=== PATIENT | male | born 1985 | race Caucasian/White ===

== ENCOUNTER 2016-11-21 23:23 | Emergency (ER) | payer SELFPAY ==
[~2016-11-21] VITALS: Ht 175.3 cm; Wt 63.6 kg
[2016-11-22] MEDS ORDERED: FLEXERIL 1010 MG/TAB PO (00:52)
[2016-11-22] MEDS ORDERED: NORCO 325 MG-51 TAB PO (00:52)
[2016-11-22 02:49] VITALS: BP 132/84; PULSE 80; TEMP 98.6
== END 2016-11-22 02:50 | disposition home or self-care (01) ==
LOC: COL.ER 23:23
DX: M54.5 Low back pain (principal); M54.16 Radiculopathy, lumbar region; M62.830 Muscle spasm of back
CPT/HCPCS: J1170

== ENCOUNTER 2016-12-01 15:51 | Emergency (ER) | payer SELFPAY ==
[~2016-12-01] VITALS: Ht 175.3 cm; Wt 63.6 kg
[~2016-12-01 15:51] MED LIST: FLEXERIL 1010 MG/TAB PO; NORCO 325 MG-51 TAB PO
[2016-12-01 15:52] VITALS: TEMP 98.2
[2016-12-01] MEDS ORDERED: PREDNISONE20 MG PO (16:47)
[2016-12-01] MEDS ORDERED: FLEXERIL 1010 MG/TAB PO (16:47)
[2016-12-01 16:54] VITALS: BP 128/86; PULSE 70
== END 2016-12-01 16:55 | disposition home or self-care (01) ==
LOC: COL.ER 15:51
DX: S39.012A Strain of muscle, fascia and tendon of lower back, initial encounter (principal); X50.0XXA Overexertion from strenuous movement or load, initial encounter